=== PATIENT | male | born 1995 | race Two or more races ===

== ENCOUNTER 2018-07-28 05:38 | Emergency (ER) | payer OTHER ==
[2018-07-28] MEDS ORDERED: NS 1,000 ML IV ONE (05:48)
[2018-07-28] MEDS ORDERED: ONDANSETRON 4 MG/2 ML VIAL ONE (05:54)
--- NOTE | 2018-07-28 05:54 | EDPHY ---
H & P Stated Complaint: R flank pain, nausea since 430am Time Seen by Provider: 07/28/18 05:53 HPI/ROS: HPI CHIEF COMPLAINT: Right-sided flank pain. HISTORY OF PRESENT ILLNESS: This is a 23-year-old male, otherwise healthy, presents emergency room with right-sided flank pain. He states he woke up early this morning to prepare for an interview that he had 9:00 a.m. This morning. Around 430 in the morning woke up and developed severe right-sided flank pain. Stayed in his right flank sharp stabbing. Associated nausea. Tender to 10/10 pain. It is since improved slightly but still has some discomfort. Denies any abdominal pain, urinary symptoms, fever, chest pain or shortness of breath. Past Medical History: Denies significant medical history Past Surgical History: Denies significant surgical history Social History: Denies drugs alcohol tobacco. Family History: Noncontributory ROS REVIEW OF SYSTEMS: 10 Systems were reviewed and negative with the exception of the elements mentioned in the history of present illness. Exam Constitutional triage nursing summary reviewed, vital signs reviewed, awake/ alert. Eyes normal conjunctivae and sclera, EOMI, PERRLA. HENT normal inspection, atraumatic, moist mucus membranes, no epistaxis, neck supple/ no meningismus, no raccoon eyes. Respiratory clear to auscultation bilaterally, normal breath sounds, no respiratory distress, no wheezing. Cardiovascular rate normal, regular rhythm, no murmur, no edema, distal pulses normal. Gastrointestinal soft, non-tender, no rebound, no guarding, normal bowel sounds, no distension, no pulsatile mass. Genitourinary mild tender palpation right CVA Musculoskeletal no midline vertebral tenderness, full range of motion, no calf swelling, no tenderness of extremities, no meningismus, good pulses, neurovascularly intact. Skin pink, warm, & dry, no rash, skin atraumatic. Neurologic awake, alert and oriented x 3, AAOx3, moves all 4 extremities equally, motor intact, sensory intact, CN II-XII intact, normal cerebellar, normal vision, normal speech. Psychiatric normal mood/affect. Heme/Lymph/Immune no lymphadenopathy. Differential diagnosis includes but is not limited to and in no particular order : Kidney stone, hydroureter, hydronephrosis Bowel obstruction, appendicitis, gallbladder disease, diverticulitis, colitis, enteritis, perforated viscus, gastritis, GERD, esophagitis, urinary tract infection, pyelonephritis, kidney stones Medical Decision Making: Plan for this patient check urinalysis, IV establishment fluid bolus, nausea medicine pain medicine as needed, CT scan abdomen pelvis without contrast for right-sided flank pain. Re-evaluate. Re-evaluation: CT scan abdomen pelvis without contrast shows a 2 mm right-sided stone at the UVJ junction. Mild hydronephrosis. Source: Patient - Personal History Current Tetanus/Diphtheria Vaccine: Yes Tetanus Vaccine Date: february 2018 - Medical/Surgical History Hx Asthma: No Hx Chronic Respiratory Disease: No Hx Diabetes: No Hx Cardiac Disease: No Hx Renal Disease: No Hx Cirrhosis: No Hx Alcoholism: No Hx HIV/AIDS: No Hx Splenectomy or Spleen Trauma: No Other PMH: ADHD, - Social History Smoking Status: Never smoked Constitutional: Initial Vital Signs Heart Rate 62 07/28/18 05:40 Respiratory Rate 18 07/28/18 05:40 Blood Pressure 151/89 H 07/28/18 05:40 O2 Sat (%) 97 07/28/18 05:40 O2 Delivery Mode Room Air Allergies/Adverse Reactions: No Known Allergies Allergy (Unverified 07/28/18 05:42) Home Medications: Medication Instructions Recorded Adderall 10 MG (*) 07/28/18 Hydrocodone/APAP 5/325 [[place] 1 - 2 tab PO Q4H PRN #10 tab 07/28/18 5/325] Ondansetron HCl [Zofran] 4 mg PO Q4-6PRN PRN #10 tablet 07/28/18 Tamsulosin HCl [Flomax] 0.4 mg PO DAILY #10 cap 07/28/18 VYVANSE 07/28/18 Medical Decision Making - Data Points Laboratory Results: Laboratory Results 07/28/18 06:00 07/28/18 07/28/18 07/28/18 06:00 06:00 06:00 WBC 8.92 10^3/uL 10^3/uL (3.80-9.50) RBC 4.98 10^6/uL 10^6/uL (4.40-6.38) Hgb 15.8 g/dL g/dL (13.7-17.5) Hct 43.3 % % (40.0-51.0) MCV 86.9 fL fL (81.5-99.8) MCH 31.7 pg pg (27.9-34.1) MCHC 36.5 g/dL g/dL (32.4-36.7) RDW 12.1 % % (11.5-15.2) Plt Count 249 10^3/uL 10^3/uL (150-400) MPV 10.3 fL fL (8.7-11.7) Neut % (Auto) 53.3 % % (39.3-74.2) Lymph % (Auto) 33.6 % % (15.0-45.0) [place] % (Auto) 10.7 % % (4.5-13.0) Eos % (Auto) 1.8 % % (0.6-7.6) Baso % (Auto) 0.4 % % (0.3-1.7) Nucleat RBC Rel Count 0.0 % % (0.0-0.2) Absolute Neuts (auto) 4.75 10^3/uL 10^3/uL (1.70-6.50) Absolute Lymphs (auto) 3.00 10^3/uL 10^3/uL (1.00-3.00) Absolute Monos (auto) 0.95 10^3/uL H 10^3/uL (0.30-0.80) Absolute Eos (auto) 0.16 10^3/uL 10^3/uL (0.03-0.40) Absolute Basos (auto) 0.04 10^3/uL 10^3/uL (0.02-0.10) Absolute Nucleated RBC 0.00 10^3/uL 10^3/uL (0-0.01) Immature Gran % 0.2 % % (0.0-1.1) Immature Gran # 0.02 10^3/uL 10^3/uL (0.00-0.10) Sodium Pending Potassium Pending Chloride Pending Carbon Dioxide Pending Anion Gap Pending BUN Pending Creatinine Pending Estimated GFR Pending Glucose Pending Calcium Pending Total Bilirubin Pending Conjugated Bilirubin Pending Unconjugated Bilirubin Pending AST Pending ALT Pending Alkaline Phosphatase Pending Total Protein Pending Albumin Pending Lipase Pending Urine Color YELLOW Urine Appearance CLEAR Urine pH 5.0 (5.0-7.5) Ur Specific [place] 1.023 (1.002-1.030) Urine Protein NEGATIVE (NEGATIVE) Urine Ketones TRACE H (NEGATIVE) Urine Blood NEGATIVE (NEGATIVE) Urine Nitrate NEGATIVE (NEGATIVE) Urine Bilirubin NEGATIVE (NEGATIVE) Urine Urobilinogen NEGATIVE EU EU (0.2-1.0) Ur Leukocyte Esterase NEGATIVE (NEGATIVE) Urine Glucose NEGATIVE (NEGATIVE) Medications Given: Discontinued Medications Sodium Chloride (Ns) 1,000 mls @ 0 mls/hr IV EDNOW ONE; Wide Open PRN Reason: Protocol Stop: 07/28/18 05:49 Last Admin: 07/28/18 05:58 Dose: 1,000 mls Departure - Departure Disposition: Home, Routine, Self-Care Clinical Impression: Kidney stone on right side Condition: Good Instructions: Renal Colic (ED), Kidney Stones (ED), Flank Pain (ED) Additional Instructions: 1. Make sure to drink lots of fluids stay well-hydrated 2. Flomax. 3. Follow up with Urology 4. Return emergency room if you have worsening pain, fever, vomiting Referrals: ERI WELLER [Other] - As per Instructions Coy Juarez MD [Medical Doctor] - As per Instructions Prescriptions: Hydrocodone/APAP 5/325 [[place] 5/325] 1 - 2 tab PO Q4H PRN #10 tab PRN Reason: Pain, Moderate Ondansetron HCl [Zofran] 4 mg PO Q4-6PRN PRN #10 tablet PRN Reason: Nausea/Vomiting, Use 1st Tamsulosin HCl [Flomax] 0.4 mg PO DAILY #10 cap
[2018-07-28 06:12] LABS: PLATELET COUNT 249 10^3/uL (150-400)
[2018-07-28] MEDS ORDERED: KETOROLAC 15 MG/1 ML SDV IVP ONE (06:22)
[2018-07-28 07:07] VITALS: BP 148/98
== END 2018-07-28 07:07 | disposition home or self-care (01) ==
DX: N20.0 Calculus of kidney (principal); E86.9 Volume depletion, unspecified
CPT/HCPCS: 96374; J1885; J2405